=== PATIENT | female | born 1970 | race Caucasian/White ===

== ENCOUNTER 2017-09-17 09:41 | Emergency (ER) | payer OTHER ==
[~2017-09-17] VITALS: Ht 152.4 cm; Wt 79.0 kg
[2017-09-17] MEDS ORDERED: ONDANSETRON 2MG/ML, 2ML IVPush ONE (12:00)
[2017-09-17] MEDS: morphine SULFATE 10 MG/ML, 1ML IVPush PRN ×2 (12:10→13:02)
[2017-09-17 12:13] LABS: HEMATOCRIT 53.6 % (34.6-47.8); HEMOGLOBIN 17.5 g/dL (11.7-16.4); WHITE BLOOD COUNT 10.5 x10^3/uL (3.4-10)
[2017-09-17 12:24] LABS: BLOOD UREA NITROGEN 7 mg/dL (7-18)
[2017-09-17 12:30] LABS: ASPARTATE AMINO TRANSFERASE 30 U/L (15-37)
[2017-09-17] MEDS ORDERED: SODIUM CHLORIDE FLUSH 10ML SYR IVF ONE (13:00)
[2017-09-17] MEDS ORDERED: SODIUM CHLORIDE 0.9% 1,000ML IVBOLUS ONE (13:00)
[2017-09-17] MEDS ORDERED: SODIUM CHLORIDE 0.9% 1,000 ML IV ONE (13:00)
[2017-09-17 13:34] VITALS: BP 136/82
[2017-09-18] MEDS ORDERED: DULO60CA7 PO (09:46)
[2017-09-18] MEDS ORDERED: GABA800T2 PO (09:46)
[2017-09-18] MEDS ORDERED: MORP-52 PO (09:47)
== END 2017-09-17 14:29 | disposition home or self-care (01) ==
LOC: ED 13:31
DX: R19.7 Diarrhea, unspecified (principal); G89.29 Other chronic pain; M54.5 Low back pain; M79.606 Pain in leg, unspecified
CPT/HCPCS: 36415; 80053; 83605; 83690; 84703; 85025; 93005; 96361; 96374; 96375; 96376; 99285; J2270; J2405; J7030

== ENCOUNTER 2017-09-18 08:59 | Emergency (ER) | payer OTHER ==
[~2017-09-18] VITALS: Ht 152.4 cm; Wt 80.6 kg
[2017-09-18] MEDS ORDERED: DULO60CA7 PO (09:46)
[2017-09-18] MEDS ORDERED: GABA800T2 PO (09:46)
[2017-09-18] MEDS ORDERED: MORP-52 PO (09:47)
[2017-09-18] MEDS ORDERED: SODIUM CHLORIDE FLUSH 10ML SYR IVF ONE (10:00)
[2017-09-18] MEDS ORDERED: MORPHINE SULFATE 4 MG/ML, 1ML IVPush PRN (10:00)
[2017-09-18] MEDS ORDERED: SODIUM CHLORIDE 0.9% 1,000ML IV ONE (10:00)
[2017-09-18] MEDS ORDERED: ONDANSETRON 2MG/ML, 2ML IVPush ONE (10:00)
[2017-09-18 10:06] LABS: HEMOGLOBIN 16.2 g/dL (11.7-16.4); WHITE BLOOD COUNT 10.1 x10^3/uL (3.4-10)
[2017-09-18 10:18] LABS: ASPARTATE AMINO TRANSFERASE 25 U/L (15-37); BLOOD UREA NITROGEN 5 mg/dL (7-18)
[2017-09-18] MEDS ORDERED: ONDANSETRON 2MG/ML, 2ML ONE (13:30)
[2017-09-18] MEDS ORDERED: morphine SULFATE 10 MG/ML, 1ML ONE (13:30)
[2017-09-18 16:19] VITALS: BP 118/75
== END 2017-09-18 16:25 | disposition home or self-care (01) ==
LOC: ED 10:11
DX: S33.5XXA Sprain of ligaments of lumbar spine, initial encounter (principal); R20.2 Paresthesia of skin; X58.XXXA Exposure to other specified factors, initial encounter; Y93.89 Activity, other specified; Y92.89 Other specified places as the place of occurrence of the external cause; Y99.8 Other external cause status
CPT/HCPCS: 36415; 72131; 80053; 81003; 84703; 85025; 96361; 96374; 96375; 99285; J2405; J7030

== ENCOUNTER → 2017-11-04 | Outpatient (CLI) | payer MEDICARE ==
[~2017-11-04] MED LIST: DULO60CA7 PO; GABA800T2 PO; MORP-52 PO
== END | disposition home or self-care (01) ==
LOC: CFH 13:01
PROVIDERS: ATTEND Neurological Surgery
DX: M85.88 Other specified disorders of bone density and structure, other site (principal); Z98.890 Other specified postprocedural states
CPT/HCPCS: 72110